=== PATIENT | female | born 1955 | race Caucasian/White ===

== ENCOUNTER → 2024-02-19 12:58 | Outpatient (REF) | payer OTHER, SELFPAY | LOC: HWRAD 12:58 | PROVIDERS: ATTENDING PHYSICIAN Family Medicine; REFERRING PHYSICIAN Obstetrics & Gynecology | DX: Z12.31 Encounter for screening mammogram for malignant neoplasm of breast (principal); Z78.0 Asymptomatic menopausal state | CPT/HCPCS: 77063; 77067; 77080 ==

== ENCOUNTER → 2024-04-01 07:12 | Outpatient (REF) | payer OTHER, SELFPAY | LOC: HWRCS 07:12 | PROVIDERS: ATTENDING PHYSICIAN Internal Medicine Cardiovascular Disease; FAMILY PHYSICIAN Family Medicine | DX: R01.1 Cardiac murmur, unspecified (principal) | CPT/HCPCS: 93306 ==

== ENCOUNTER → 2024-04-15 08:03 | Outpatient (REF) | payer OTHER, SELFPAY | LOC: RCS 08:03 | PROVIDERS: ATTENDING PHYSICIAN Internal Medicine Cardiovascular Disease; FAMILY PHYSICIAN Family Medicine | DX: R94.31 Abnormal electrocardiogram [ECG] [EKG] (principal) | CPT/HCPCS: 93017; 93350 ==

== ENCOUNTER 2024-05-18 13:24 | Emergency (ER) | payer OTHER, SELFPAY ==
[2024-05-18 13:37] VITALS: BP 118/77
--- NOTE | 2024-05-18 15:25 | ED.MUSCINJ ---
HPI-Injury
General
Chief Complaint: Musculo-Skeletal Complaint
Source: patient
Exam Limitations: none
Time Seen by Provider: 05/18/24 15:03
History of Present Illness-Injury
Initial Injury comments:
68-year-old female presents with left knee pain starting last night. She was dancing at a wedding and felt a pop in the back of her knee. Since then she has had pain in the back of her knee. She denies any catching clicking or locking. She
denies any instability. When she bears weight the pain is mostly posterior. No prior injury to her knee. No other complaints
Phy Exam
Physical Exam
Physical Exam:
General: Well-appearing female no acute respiratory distress
HEENT: Normocephalic atraumatic
Musculoskeletal exam: Left knee with slight swelling and fullness over the popliteal space. She is tender over the posterior joint line the knee is stable to ligament exam there is no deformities. She is able to straight leg raise and flex beyond
90 degrees.
Skin is intact
Vascular exam shows no calf edema or tenderness
Injury Course
Orders/Labs/Results
Orders:
Orders
05/18/24 13:44
Knee, Left 4 or More Views [CR Knee - Left 4 Or More View*] Urgent
Comment:
Reason For Exam: injury
05/18/24 15:25
Knee Immobilizer Left-Treatmen ONCE
MDM/Problems Addressed
Differential Diagnosis Includes:
Left knee pain after dancing. She felt a pop. Consider sprain versus strain will get x-ray to evaluate for fracture or dislocation
X-rays were personally visualized which are negative for acute finding. I suspect underlying sprain or strain. Patient was offered knee immobilizer. Advised follow-up with orthopedics
*Critical Care Note
Total Time (30-74mins, 75-104mins- exclusive of procedures): Not Applicable
ED Attending Note
-
Portions of this chart may have been created with voice recognition software.� Occasional wrong word or��sound alike� substitutions may have occurred due to the inherent limitations of voice recognition software.
Discharge Plan
Departure
Patient Disposition: Home (Routine Discharge)
Date of Disposition: 05/18/24
Time of Disposition: 15:27
Patient with high blood pressure during this ER visit?: No
Discharge Problem:
Knee sprain
Instructions: Muscle and Bone Pain (DC)
Referrals:
Tigre Anthony MD [Active] -
Guicho Brar CRNP [Family Provider] -
Activity Restrictions/Additional Instructions:
Use brace for support. You may use ibuprofen or Tylenol for pain. Follow-up with orthopedics return if worse otherwise
Interventions
Interventions:
*Risk Screen - Suicide Last Done: 05/18/24 13:37
*General Assessment Last Done: 05/18/24 13:37
*Neglect/Abuse Screening Last Done: 05/18/24 13:37
ED- Fall Risk Assessment Last Done: 05/18/24 14:50
*ED COVID-19 Vaccine History Last Done: 05/18/24 14:50
ED-Musculoskeletal Assessment Last Done: 05/18/24 14:50
Discharge Date and Time
Print Language: GREEK
== END 2024-05-18 15:44 | disposition home or self-care (01) ==
LOC: EMR 13:24
PROVIDERS: EMERGENCY PHYSICIAN Emergency Medicine
DX: M25.562 Pain in left knee (principal); S83.92XA Sprain of unspecified site of left knee, initial encounter; Y93.41 Activity, dancing
CPT/HCPCS: 99283; 29505; 73564

== ENCOUNTER 2024-10-21 06:22 | Day surgery (SDC) | payer OTHER, SELFPAY | END 2024-10-21 10:15 | disposition home or self-care (01) | LOC: GI 06:22 | PROVIDERS: ATTENDING PHYSICIAN Internal Medicine Gastroenterology | DX: Z12.11 Encounter for screening for malignant neoplasm of colon (principal); K57.30 Diverticulosis of large intestine without perforation or abscess without bleeding; K63.89 Other specified diseases of intestine; R13.10 Dysphagia, unspecified; K44.9 Diaphragmatic hernia without obstruction or gangrene; K22.89 Other specified disease of esophagus; K22.10 Ulcer of esophagus without bleeding; K31.89 Other diseases of stomach and duodenum; Z86.0101 Personal history of adenomatous and serrated colon polyps | CPT/HCPCS: 45380; 43239; 88305; 88342 ==

== ENCOUNTER → 2025-03-21 09:30 | Outpatient (REF) | payer MEDICARE, OTHER, SELFPAY ==
[2025-03-21 12:33] LABS: Hematocrit 40.8 % (37.0-47.0); Hemoglobin 13.5 g/dL (12.0-16.0); Mean Corp Hgb Conc. 33.1 g/dL (33.0-37.0); Mean Corpuscular Volume 89.9 fL (81.0-99.0); Nucleated Red Blood Cells % 0 %; Platelet Count 260 10^3/uL (130-400); Red Cell Dist. Width 13.1 % (11.5-14.5)
[2025-03-21 13:03] LABS: ALT (SGPT) 24 U/L (0-35); AST (SGOT) 25 U/L (14-36); Albumin 4.4 g/dl (3.5-5.0); Alkaline Phosphatase 59 U/L (38-126); Blood Urea Nitrogen 17 mg/dl (7-17); Calcium 9.3 mg/dl (8.4-10.2); Carbon Dioxide 28 mmol/L (22-30); Chloride 105 mmol/L (98-107); Glucose 102 mg/dl (70-99); HDL Cholesterol 58 mg/dl; LDL Cholesterol, Calculated 172 mg/dl; Potassium 4.7 mmol/L (3.5-5.1); Sodium 139 mmol/L (135-145); Total Protein 7.3 g/dl (6.3-8.2); Very Low Density Lipoprotein 22 mg/dl (0-30); eGFR > 60.00
[2025-03-21 14:10] LABS: Glycohemoglobin (HgbA1c) 5.8 % (4.0-5.6)
== END ==
LOC: HWWDC 09:30
PROVIDERS: ATTENDING PHYSICIAN Nurse Practitioner Family
DX: Z12.31 Encounter for screening mammogram for malignant neoplasm of breast (principal); E78.5 Hyperlipidemia, unspecified; K63.5 Polyp of colon; I10 Essential (primary) hypertension; M81.0 Age-related osteoporosis without current pathological fracture; R73.01 Impaired fasting glucose
CPT/HCPCS: 36415; 77063; 77067; 80053; 80061; 83036; 84443; 85025